=== PATIENT | female | born 1975 | race Two or more races ===

== ENCOUNTER 2023-07-06 02:50 | Emergency (ER) | payer SELFPAY ==
[~2023-07-06] VITALS: Ht 160 cm; Wt 89.9 kg
[~2023-07-06 02:50] MED LIST: ALBU0.084
[2023-07-06] MEDS ORDERED: ALBUTEROL SULF 2.5 MG/0.5ML(0.5%) NEB SOLN NEB ONE (03:30)
[2023-07-06] MEDS ORDERED: IPRATROPIUM BROM 0.5 MG/2.5ML INH SOL NEB ONE (03:30)
[2023-07-06] MEDS ORDERED: predniSONE 20 MG TAB PO ONE (03:30)
[2023-07-06] MEDS ORDERED: ALBU108A5 IN (03:52)
[2023-07-06] MEDS ORDERED: PRED20TA2 PO (03:52)
[2023-07-06 05:32] VITALS: BP 120/86; PULSE 82; RESP 18; TEMP 97.6; O2SAT 94
== END 2023-07-06 05:34 | disposition home or self-care (01) ==
LOC: ER 02:50
DX: J45.909 Unspecified asthma, uncomplicated (principal); Z98.890 Other specified postprocedural states
CPT/HCPCS: 71045; 93005; 94640; 99283; J7512; J7644